=== PATIENT | female | born 1980 | race Caucasian/White ===

== ENCOUNTER 2020-05-04 10:40 | Emergency (ER) | payer OTHER ==
[2020-05-04] MEDS ORDERED: HYDROCODON-ACE1 EAC4 PO (12:19)
== END 2020-05-04 12:40 | disposition home or self-care (01) ==
LOC: ER1 10:40
DX: S82.424A Nondisplaced transverse fracture of shaft of right fibula, initial encounter for closed fracture (principal); S93.401A Sprain of unspecified ligament of right ankle, initial encounter; M79.671 Pain in right foot; Z87.81 Personal history of (healed) traumatic fracture; W01.0XXA Fall on same level from slipping, tripping and stumbling without subsequent striking against object, initial encounter; Y92.009 Unspecified place in unspecified non-institutional (private) residence as the place of occurrence of the external cause
CPT/HCPCS: 29505; 73590; 73610; 73630; 99283